=== PATIENT | female | born 1990 | race Caucasian/White ===

== ENCOUNTER 2017-03-02 19:22 | Emergency (ER) | payer OTHER ==
[~2017-03-02] VITALS: Ht 157.5 cm; Wt 40.5 kg
[2017-03-02 19:25] VITALS: Ht 157.5 cm; Wt 40.5 kg
[2017-03-02] MEDS ORDERED: BENZ100C70 PO (20:31)
[2017-03-02] MEDS ORDERED: IBUP-1542 PO (20:31)
--- NOTE | 2017-03-02 22:54 | ERD ---
ER Documentation Chief Complaint Date/Time DATE: 03/02/17 TIME: 22:[address] AND COUGH X2 DAYS. HPI 27-year-old female presents with history of sore throat and cough for the past 2 days. Patient reports of dry cough, no hemoptysis, no fevers or chills. Denies chest pain or shortness of breath. ROS All systems reviewed and are negative except as per history of present illness. Medications Home Meds Active Scripts Ibuprofen* (Motrin*) 600 Mg Tab, 600 MG PO Q6, #30 TAB Prov:LESLYE ORTEGA PA-C 03/02/17 Benzonatate* (Tessalon Perle*) 100 Mg Capsule, 100 MG PO Q8H Y for COUGH, #30 CAP Prov:LESLYE ORTEGA PA-C 03/02/17 Allergies Allergies: Coded Allergies: No Known Allergy (Unverified , 03/02/17) PMhx/Soc History of Surgery: No Anesthesia Reaction: No Hx Neurological Disorder: No Hx Respiratory Disorders: No Hx Cardiac Disorders: No Hx Psychiatric Problems: No Hx Miscellaneous Medical Probl: No Hx Alcohol Use: No Hx Substance Use: No Hx Tobacco Use: No Smoking Status: Never smoker Physical Exam Vitals Vital Signs Date Time Temp Pulse Resp B/P Pulse Ox O2 Delivery O2 Flow Rate FiO2 03/02/17 19:25 96.4 87 18 113/86 98 Physical Exam Const: Well-developed, well-nourished, in no acute distress. HEENT: Atraumatic. Normal Conjunctiva. TM's normal bilaterally, clear oropharynx. Supple. Full range of motion. No meningismus. Resp: Clear to auscultation bilaterally Cardio: Regular rate and rhythm, no murmurs Abd: Soft, non tender, non distended. Normal bowel sounds. No McBurney' s point tenderness. No guarding or rigidity. No peritoneal signs. Skin: No petechia or rashes Back: No midline or flank tenderness Ext: No cyanosis, or edema Neur: Awake and alert Procedures/MDM The patient is a 27-year-old who comes in with an acute upper respiratory infection, presumed viral. The patient has a differential diagnosis of a viral upper respiratory infection, bacterial upper respiratory infection, bronchitis, pneumonia, pharyngitis, laryngitis, epiglottitis, croup, pneumonia. Patient has a normal pulmonary examination, clear breath sounds, normal pulse oximetry, with no corrective measures needed at this time. Fluids, rest, antipyretics were encouraged. Departure Diagnosis: Primary Impression: Cough Condition: Good Patient Instructions: Uri, Viral, No Abx (Adult) Additional Instructions: Call your primary care doctor TOMORROW for an appointment during the next 1-2 days.See the doctor sooner or return here if your condition worsens before your appointment time. LESLYE ORTEGA PA-C Mar 02, 2017 22:54
== END 2017-03-02 20:35 | disposition home or self-care (01) ==
LOC: FTE 19:22
DX: R05 Cough (principal)
CPT/HCPCS: 99283

== ENCOUNTER 2017-03-06 10:32 | Emergency (ER) | payer OTHER ==
[~2017-03-06] VITALS: Ht 165.1 cm; Wt 41.0 kg
[~2017-03-06 10:32] MED LIST: BENZ100C70 PO; IBUP-1542 PO
[2017-03-06 10:38] VITALS: Ht 165.1 cm; Wt 41.0 kg
[2017-03-06] MEDS ORDERED: SODI126M NASAL (10:58)
[2017-03-06] MEDS ORDERED: GUAI473L22 PO (10:58)
[2017-03-06] MEDS ORDERED: IBUP-1542 PO (10:58)
[2017-03-06] MEDS ORDERED: AMO500 PO (10:58)
[2017-03-06] MEDS ORDERED: FLUT9.9S NASAL (10:58)
--- NOTE | 2017-03-06 11:07 | ERD ---
ER Documentation Chief Complaint Date/Time DATE: 03/06/17 TIME: 11:00 Chief Complaint Complains of left ear pain HPI 27-year-old female complaining of left ear pain since today. Patient states that she had a cough 1 week, was seen here 4 days ago. She was told that she had a viral upper respiratory infection at that time. Patient stated that the Tessalon Perles prescribed for her 4 days ago did not help with her cough. Cough is nonproductive, worse at night. Denies fever or chills. Denies shortness of breath. Denies decreasing hearing. Denies recent swimming, or recent ear trauma. ROS All systems reviewed and are negative except as per history of present illness. Medications Home Meds Active Scripts Fluticasone Propionate (Flonase Allergy Relief) 9.9 Ml [place].susp, 1 SPRAY NASAL DAILY, #1 BOTTLE TO EACH NOSTRIL Prov:JUMA AMADOR NP 03/06/17 Sodium Chloride (Saline Nasal Mist) 126 Ml Mist, 2 SPRAY NASAL Q2H Y for NASAL CONGESTION, #1 BOTTLE Prov:JUMA AMADOR NP 03/06/17 Guaifenesin-Codeine Phosphate* (Guaifenesin* AC Cough Syrup) 473 Ml Liquid, 10 ML PO QHS Y for COUGH, #120 ML Prov:JUMA AMADOR NP 03/06/17 Amoxicillin* (Amoxicillin*) 500 Mg Cap, 500 MG PO TID for 10 Days, CAP Take this only if the ear pain is not better after 3 days. Prov:JUMA AMADOR NP 03/06/17 Ibuprofen* (Motrin*) 600 Mg Tab, 600 MG PO Q6H Y for PAIN AND OR ELEVATED TEMP, #30 TAB Prov:JUMA AMADOR NP 03/06/17 Ibuprofen* (Motrin*) 600 Mg Tab, 600 MG PO Q6, #30 TAB Prov:LESLYE ORTEGA PA-C 03/02/17 Benzonatate* (Tessalon Perle*) 100 Mg Capsule, 100 MG PO Q8H Y for COUGH, #30 CAP Prov:LESLYE ORTEGA PA-C 03/02/17 Allergies Allergies: Coded Allergies: No Known Allergy (Unverified , 03/02/17) PMhx/Soc Medical and Surgical Hx: pt denies Medical Hx History of Surgery: No Anesthesia Reaction: No Hx Neurological Disorder: No Hx Respiratory Disorders: No Hx Cardiac Disorders: No Hx Psychiatric Problems: No Hx Miscellaneous Medical Probl: No Hx Alcohol Use: No Hx Substance Use: No Hx Tobacco Use: No Physical Exam Vitals Vital Signs Date Time Temp Pulse Resp B/P Pulse Ox O2 Delivery O2 Flow Rate FiO2 03/06/17 10:38 98.0 83 20 112/64 96 Physical Exam General: Well-developed, well-nourished, conscious and coherent, in no distress Skin: Warm and dry without rash, good texture and turgor Head: Normocephalic without evidence of trauma Eyes: Sclera and conjunctivae normal; pupils equal, round, and reactive to light; extraocular movements are intact Ears: Canals are patent. Right tympanic membrane clear, left TM erythematous and slightly bulging. Nose/Face: Nasal mucosa erythematous and swollen Mouth/throat: Mucous membranes are moist. Posterior pharynx clear without erythema or exudates Neck: Supple without meningismus or adenopathy. Carotids are equal. Trachea midline. No bruits or JVD Chest: Normal AP diameter. Good expansion without retractions. Nontender. Lungs are clear to auscultate bilaterally with good tidal volume Heart: Regular rate and rhythm. No murmur, rub, or gallops heard Extremities: Full range of motion. Good strength bilaterally. No clubbing, cyanosis, or edema. Peripheral pulses are intact. Sensation intact Neuro: Alert and oriented 4, GCS 15. Cranial nerves grossly intact. Motor and sensory exams nonfocal. Moves all extremities. Speech clear. Gait normal Procedures/MDM Well-appearing 27-year-old female complaining of left ear pain times several hours after a viral URI symptoms for 1 week. Patient is afebrile, I doubt bacterial otitis media. Likely her otitis media is due to nasal congestion. Patient is given prescription of amoxicillin, and instructed to hold the antibiotics for 3 days. She may take antibiotics only if her ear pain does not improve after 3 days. Patient is afebrile, in no respiratory distress. Lungs are clear to auscultate. I doubt that patient has pneumonia or bronchitis. Patient appears well, stable for discharge and outpatient management. Medical decision making shared with patient and family. Education provided to patient and family. Patient and family expressed understanding of the plan. Medications on discharge: Ibuprofen, amoxicillin, saline nasal spray, Flonase, guaifenesin with codeine. Follow-up: Primary care provider in 2-3 days or return to ED if worse. Disclaimer: Inadvertent spelling and grammatical errors are likely due to EHR/ dictation software use and do not reflect on the overall quality of patient care. Also, please note that the electronic time recorded on this note does not necessarily reflect the actual time of the patient encounter. Departure Diagnosis: Primary Impression: Left ear pain Additional Impression: URI (upper respiratory infection) URI type: acute nasopharyngitis (common cold) Qualified Code: J00 - Acute nasopharyngitis Condition: Stable Patient Instructions: Adult Self-Care for Colds, Otitis Media, Wait And See Abx Tx (Child Over 6 Mo) Referrals: [facility] YOU HAVE RECEIVED A MEDICAL SCREENING EXAM AND THE RESULTS INDICATE THAT YOU DO NOT HAVE A CONDITION THAT REQUIRES URGENT TREATMENT IN THE EMERGENCY DEPARTMENT. FURTHER EVALUATION AND TREATMENT OF YOUR CONDITION CAN WAIT UNTIL YOU ARE SEEN IN YOUR DOCTORS OFFICE WITHIN THE NEXT 1-2 DAYS. IT IS YOUR RESPONSIBILITY TO MAKE AN APPOINTMENT FOR FOLOW-UP CARE. IF YOU HAVE A PRIMARY DOCTOR --you should call your primary doctor and schedule an appointment IF YOU DO NOT HAVE A PRIMARY DOCTOR YOU CAN CALL OUR PHYSICIAN REFERRAL HOTLINE AT IF YOU CAN NOT AFFORD TO SEE A PHYSICIAN YOU CAN CHOSE FROM THE FOLLOWING [facility] [address] [facility]. [facility] [address] [facility] [address] [facility] [facility] [address] [facility]. [facility] [address] [facility]. [facility]. [address] Additional Instructions: Call your primary care doctor TOMORROW for an appointment during the next 2-3 days.See the doctor sooner or return here if your condition worsens before your appointment time. JUMA AMADOR NP Mar 06, 2017 11:07
== END 2017-03-06 11:20 | disposition home or self-care (01) ==
LOC: FTE 10:32
DX: H92.02 Otalgia, left ear (principal); J00 Acute nasopharyngitis [common cold]
CPT/HCPCS: 99284